=== PATIENT | male | born 1980 | race Caucasian/White ===

== ENCOUNTER 2019-04-23 16:32 | Emergency (ER) | payer SELFPAY ==
[~2019-04-23] VITALS: Ht 180.3 cm; Wt 100.0 kg
[2019-04-23] MEDS: METOCLOPRAMIDE HCL 10MG/2ML VIAL IV ONE (17:49)
[2019-04-23] MEDS: SODIUM CHLORIDE 0.9% 1,000 ML IV ONE (17:49)
[2019-04-23 21:09] VITALS: BP 132/69
== END 2019-04-23 21:40 | disposition home or self-care (01) ==
LOC: ER 16:32
DX: T40.7X1A Poisoning by cannabis (derivatives), accidental (unintentional), initial encounter (principal); Y92.89 Other specified places as the place of occurrence of the external cause; R11.2 Nausea with vomiting, unspecified; R10.9 Unspecified abdominal pain
CPT/HCPCS: 96361; 96374; 99283; J2765; J7030